=== PATIENT | male | born 1970 | race African-American/Black ===

== ENCOUNTER 2016-08-24 12:09 | Emergency (ER) | payer OTHER ==
[~2016-08-24] VITALS: Ht 177.8 cm; Wt 122.5 kg
--- NOTE | ~2016-08-24 | EKG ---
[address] [address] ELECTROCARDIOGRAM REPORT Name: JOHN NOLASCO [facility] [id number] Admission: 08/24/16 Attend Phys: Discharge: 08/24/16 Date of : 72 Report #: [id number] THIS REPORT FOR: //name// [facility] ED Test Date: 2016-08-24 Test Time: 12:54:58 Pat Name: JOHN NOLASCO Department: Room: Gender: M It Technical Support Specialist: Shorty FREIRE : 1970 Requested By: Harsh James Order Number: [id number] MD: Bishop Forbes Measurements Intervals [place] Rate: 83 P: 17 TN: 158 QRS: 19 QRSD: 93 T: 15 QT: 416 QTc: 489 Interpretive Statements Sinus rhythm Consider anterior infarct Compared to ECG 09/12/2007 00:23:56 Myocardial infarct finding now present ST (T wave) deviation no longer present Electronically Signed On 08-25-2016 16:12:16 CDT by Bishop Forbes [email or web address] <ELECTRONICALLY SIGNED> By: Bishop Forbes MD 08/25/16 1612 [id number] Bishop Forbes MD /[email or web address]
[2016-08-24] MEDS ORDERED: NORVASC2.5 MG PO (12:22)
[2016-08-24 12:56] LABS: BASOPHILS 1.3 % (0.0-2.0); EOSINOPHILS 0.3 % (0.0-3.0); HEMATOCRIT 39.8 % (42.0-52.0); LYMPHOCYTES 28.2 % (24.0-44.0); MCH 26.8 pg (26.0-34.0); MCHC 32.5 g/dL (28.0-37.0); MCV 82.5 fL (80.0-100.0); MONOCYTES 7.5 % (1.0-8.0); PLATELET COUNT 393 thou/uL (150-400); POLYS 62.7 % (36.0-66.0); RBC 4.83 mil/uL (4.50-6.00); RDW 14.2 % (10.5-14.5); WBC 6.4 thou/uL (4.0-11.0)
[2016-08-24 13:05] LABS: ANION GAP 20 mmol/L (7-16); BUN 9 mg/dL (7-18); CALCIUM 9.2 mg/dL (8.5-10.1); CHLORIDE 110 mmol/L (98-107); CO2 22 mmol/L (21-32); CREATININE 1.1 mg/dL (0.7-1.3); GLUCOSE 111 mg/dL (74-106); POTASSIUM 4.3 mmol/L (3.5-5.1); SODIUM 152 mmol/L (136-145)
[2016-08-24 13:06] LABS: MANUAL DIFF NO
[2016-08-24 13:15] LABS: URINE BLOOD TRACE (Negative); URINE COLOR YELLOW; URINE GLUCOSE-RANDOM* NEGATIVE (Negative); URINE KETONES 2+ (Negative); URINE LEUKOCYTES-REFLEX NEGATIVE (Negative); URINE PROTEIN (DIPSTICK) 2+ (Negative); URINE SPECIFIC GRAVITY >= 1.030 (1.003-1.035)
[2016-08-24 13:18] LABS: URINE BILIRUBIN NEGATIVE (Negative)
[2016-08-24 13:19] LABS: ACETAMINOPHEN < 2 ug/mL (10-30); ALBUMIN 4.6 g/dL (3.4-5.0); ALKALINE PHOSPHATASE 56 U/L (46-116); CK-MB MASS 4.2 ng/mL (<0.5-3.6); MAGNESIUM 2.2 mg/dL (1.8-2.4); SALICYLATE < 2.8 mg/dL (2.8-20.0); SGOT 44 U/L (15-37); SGPT 50 U/L (30-65); TOTAL BILIRUBIN 0.7 mg/dL (<0.1-1.0); TROPONIN-I < 0.04 ng/mL (<0.04-0.07)
[2016-08-24 13:22] LABS: AMP/METHAMP Negative (Negative); BARBITURATES Negative (Negative); BENZODIAZEPINES Negative (Negative); COCAINE Negative (Negative); METHADONE Negative (Negative); OPIATES Negative (Negative); PCP Negative (Negative); SQUAMOUS None Seen /LPF (0-3); THC Negative (Negative); URINE WBC-REFLEX None Seen /HPF (0-5)
[2016-08-24 13:23] LABS: CASTS None Seen /LPF (None Seen); CRYSTALS None Seen /LPF (None Seen); URINE RBC 0-2 Rare /HPF (0-2)
[2016-08-24] MEDS ORDERED: ATIVAN1 MG PO (13:29)
[2016-08-24 14:13] VITALS: BP 150/130
== END 2016-08-24 14:14 | disposition home or self-care (01) ==
LOC: ER 12:09
PROVIDERS: Emergency Medicine
DX: F41.0 Panic disorder [episodic paroxysmal anxiety] (principal); F10.10 Alcohol abuse, uncomplicated; F41.9 Anxiety disorder, unspecified; M62.82 Rhabdomyolysis; I10 Essential (primary) hypertension

== ENCOUNTER 2017-12-25 22:55 | Emergency (ER) | payer OTHER ==
[~2017-12-25] VITALS: Ht 177.8 cm; Wt 127.0 kg
[~2017-12-25 22:55] MED LIST: ATIVAN1 MG PO; NORVASC2.5 MG PO
[2017-12-25 23:25] LABS: URINE BILIRUBIN 2+ (Negative); URINE BLOOD 2+ (Negative); URINE CLARITY CLOUDY; URINE COLOR YELLOW; URINE GLUCOSE-RANDOM* NEGATIVE (Negative); URINE KETONES 1+ (Negative); URINE LEUKOCYTES-REFLEX NEGATIVE (Negative); URINE PROTEIN (DIPSTICK) 2+ (Negative); URINE SPECIFIC GRAVITY >= 1.030 (1.005-1.035)
[2017-12-25 23:26] LABS: URINE NITRITE-REFLEX POSITIVE (Negative)
[2017-12-25 23:28] LABS: ICTOTEST (BILI CONFIRMATORY) Positive (Negative)
[2017-12-25] MEDS ORDERED: NORVASC10 MG PO (23:30)
[2017-12-25 23:38] LABS: HYALINE CASTS >10 Many /LPF (None Seen); MUCUS 4-6 Moderate strn/LPF (None Seen); SQUAMOUS 0-3 Few /LPF (0-3); URINE WBC-REFLEX None Seen /HPF (0-5)
[2017-12-25 23:39] LABS: AMORPHOUS URATES Moderate /LPF (None Seen); BACTERIA-REFLEX 1-9 Few /HPF (None Seen); URIC ACID CRYSTALS 4-10 Moderate /LPF (None Seen); URINE RBC 0-2 Rare /HPF (0-2)
[2017-12-25 23:43] LABS: ABSOLUTE NEUTROPHILS 6.8 thou/uL (1.4-8.2); BASOPHILS 0.5 % (0.0-2.0); EOSINOPHILS 0.7 % (0.0-3.0); HEMATOCRIT 40.3 % (42.0-52.0); LYMPHOCYTES 11.3 % (24.0-44.0); MCH 26.6 pg (26.0-34.0); MCHC 32.3 g/dL (28.0-37.0); MCV 82.4 fL (80.0-100.0); MONOCYTES 11.7 % (1.0-8.0); PLATELET COUNT 230 thou/uL (150-400); POLYS 75.8 % (36.0-66.0); RBC 4.89 mil/uL (4.50-6.00); RDW 14.4 % (10.5-14.5); WBC 8.9 thou/uL (4.0-11.0)
[2017-12-25 23:46] LABS: CALCIUM 10.7 mg/dL (8.5-10.1); CREATININE 1.9 mg/dL (0.7-1.3)
[2017-12-25 23:52] LABS: ALBUMIN 4.7 g/dL (3.4-5.0); DIRECT BILIRUBIN 0.1 mg/dL (<0.1-0.3); TOTAL BILIRUBIN 1.3 mg/dL (<0.1-1.0); TOTAL PROTEIN 9.7 g/dL (6.4-8.2)
[2017-12-26] MEDS ORDERED: BENTYL 20 MG TA20 M1 PO (00:40)
[2017-12-26] MEDS ORDERED: ZOFRAN ODT4 MG PO (00:40)
[2017-12-26 01:12] VITALS: BP 137/88
== END 2017-12-26 01:12 | disposition home or self-care (01) ==
LOC: ER 22:55
PROVIDERS: Emergency Medicine
DX: E80.6 Other disorders of bilirubin metabolism (principal); R10.11 Right upper quadrant pain; R11.10 Vomiting, unspecified; I10 Essential (primary) hypertension